=== PATIENT | female | born 1975 | race Caucasian/White ===

== ENCOUNTER 2019-05-11 17:52 | Emergency (ER) | payer OTHER ==
[~2019-05-11] VITALS: Ht 162.6 cm; Wt 90.7 kg
[2019-05-11] MEDS ORDERED: LYRICA50 MG (18:17)
[2019-05-11] MEDS ORDERED: LYRICA20 MG/1 ML (18:17)
[2019-05-11] MEDS ORDERED: SYNTHROID150 MCG (18:17)
[2019-05-11] MEDS ORDERED: ROCALTROL0.25 MCG (18:17)
[2019-05-11] MEDS ORDERED: TOPROL XL25 M1 (18:17)
== END 2019-05-11 22:03 | disposition home or self-care (01) ==
LOC: ER 17:52
DX: N20.0 Calculus of kidney (principal); R10.12 Left upper quadrant pain; R10.32 Left lower quadrant pain

== ENCOUNTER 2021-08-22 22:45 | Emergency (ER) | payer OTHER ==
[~2021-08-22] VITALS: Ht 162.6 cm; Wt 79.4 kg
[~2021-08-22 22:45] MED LIST: LYRICA20 MG/1 ML; LYRICA50 MG; ROCALTROL0.25 MCG; SYNTHROID150 MCG; TOPROL XL25 M1
[2021-08-22] MEDS ORDERED: SYNTHROID112 MCG (23:14)
[2021-08-22] MEDS ORDERED: PREGABALIN75 MG (23:15)
[2021-08-22] MEDS ORDERED: ADIPEX-P37.5 MG (23:16)
[2021-08-22] MEDS ORDERED: MEDROLPACK PO (23:52)
[2021-08-22] MEDS ORDERED: ZITHROMAX500 MG PO (23:52)
[2021-08-22] MEDS ORDERED: FLONASE ALLERG9.9 ML NASAL (23:54)
[2021-08-22] MEDS ORDERED: SINUS RINSE ST1 EACH NASAL (23:54)
== END 2021-08-23 00:15 | disposition home or self-care (01) ==
LOC: ER 22:45
DX: R09.82 Postnasal drip (principal); J06.9 Acute upper respiratory infection, unspecified; Z88.6 Allergy status to analgesic agent